=== PATIENT | female | born 1965 | race Caucasian/White ===

== ENCOUNTER 2018-07-02 12:48 | Outpatient (REF) | payer BC, SELFPAY ==
--- NOTE | 2018-07-02 11:40 | PAPFT_PTH ---
PATIENT: Kate North LOC: [facility] U#:[id number] AGE/SX: 52/F ROOM: RE07/02/[address]: ODIN Reyes : 1965 BED: DIS: 07/02/2018 SPEC #: [id number] RECD: 07/02/18 17:58 STATUS: DEEPA REQ #: [id number] RADHA: 07/02/18 11:[address]: Dejah Naranjo DEPT: [facility] Cytology RECD BY: Stacie Benítez Tissues: 1 - CX/ENDOCX FOR PAP SMEARS Procedures: PAP THIN PREP/UVM Screening HPV DNA PROBE Comments: [id number]
== END 2018-07-02 13:08 ==
LOC: LBN 12:48
PROVIDERS: PCP Nurse Practitioner Family; Visit Provider Nurse Practitioner Family
DX: Z12.4 Encounter for screening for malignant neoplasm of cervix (principal); Z11.51 Encounter for screening for human papillomavirus (HPV)
CPT/HCPCS: 88142; 87624

== ENCOUNTER 2018-08-19 00:39 | Outpatient (CLI) | payer BC, SELFPAY ==
--- NOTE | 2018-08-19 12:50 | DI.MAMMO_ITS ---
SYMPTOM/DIAGNOSIS: SCREENING, Z12.31 BILATERAL SCREENING MAMMOGRAM: Mammograms were interpreted according to the usual protocol including computer analysis with CAD system, tomosynthesis and C view imaging. The patient's previous exam performed in 2004 is no longer available for comparison. The breasts are composed of heterogeneously dense fibroglandular tissue, Breast density category C. There are no suspicious masses or suspicious microcalcifications seen. IMPRESSION: Category 1-C, negative mammogram. Yearly screening mammography is recommended. RUST ASSESSMENT OF FINDINGS: Negative. Category 1. Patient will receive a letter notifying them of these results. Bi-RADS category C. The breasts are heterogeneously dense, which may obscure small masses.
== END 2018-08-19 00:59 ==
PROVIDERS: PCP Nurse Practitioner Family; Visit Provider Nurse Practitioner Family
DX: Z12.31 Encounter for screening mammogram for malignant neoplasm of breast (principal)
CPT/HCPCS: 77063; 77067

== ENCOUNTER 2019-03-10 12:50 | Emergency (ER) | payer OTHER, SELFPAY ==
[2019-03-10 12:58] VITALS: BP 150/95; PULSE 79; RESP 16; TEMP 36.6; O2SAT 100
--- NOTE | 2019-03-10 13:12 | ED.GENADUL_ITS ---
Discharge Plan Disposition Patient Disposition: HOME Condition: Stable Discharge Details Chief Complaint: Allergic Clinical Impression: Pruritus Primary Care Provider: Dejah Naranjo ED Provider: Santino Krishna Home Meds and New Rx's Prescriptions: New prednisone 50 mg tablet 50 mg PO DAILY 5 Days Qty: 5 RF: 0 epinephrine 0.3 mg/0.3 mL auto-injector 0.3 mg IM ONCE PRN (Reason: anaphylaxis) Qty: 2 RF: 0 Discharge Instructions Additional Instructions: continue taking your antihistamines follow up as scheduled with your primary care provider if you develop difficulty breathing, abdominal pain or perstistent vomit use your epi pen and return to the emergency department for reevaluation Medical Decision Making 53 yo female states that since Friday morning her face has felt more swollen and itching. She ate shellfish on Friday and has no known allergy to this so unclear if this started her symptoms, denies new meds or detergents. She has no respiratory or gi symptoms and is speaking in full sentences. She has no hives, has mild erythema of her cheeks that is not tender or warm to touch and I can't appreciate any signfiicant swelling. Given her itching and reproted swelling could have local dermatitis, will start steroids as she is already taking antihistamines and advised f/u with pcp as scheduled tomorrow and return precautions given Differential Diagnosis local dermatitis, allergies HPI General Mode of arrival: ambulatory . Date/Time Provider Initiated Documentation: 03/10/19 13:05 . Limitations to Documentation: no limitations . Information obtained by: patient . History of Present Illness 53 year old F presents to the emergency department with the chief complaint of face swelling, described as moderate, and is localized to the face. Patient started experiencing this day(s) (5) and it has been constant. No relieving factors improve symptom(s), No exacerbating factors reported . Patient did receive the following treatments prior to arrival, none Related Data Home Medications Medication Instructions Recorded Confirmed epinephrine 0.3 mg IM ONCE PRN #2 each 03/10/19 prednisone 50 mg PO DAILY 5 Days #5 tab 03/10/19 Previous Rx's Medication Instructions Recorded epinephrine 0.3 mg IM ONCE PRN #2 each 03/10/19 prednisone 50 mg PO DAILY 5 Days #5 tab 03/10/19 Allergies Allergy/AdvReac Type Severity Reaction Status Date / Time shrimp Allergy Intermediate Lip Verified 03/10/19 13:02 Swelling Penicillins Allergy Mild Hives Verified 03/10/19 13:02 Shellfish Allergy Intermediate Lip Uncoded 03/10/19 13:02 Swelling General Stated Complaint: Allergic JULIANA: 3 Review of Systems Review of Systems All systems reviewed & are unremarkable except as noted in HPI and below Constitutional Denies chills, Denies fever(s) and Denies weakness Cardiovascular Denies chest pain and Denies dyspnea Respiratory Denies dyspnea Gastrointestinal Denies abdominal pain, Denies nausea and Denies vomiting Neurologic Denies weakness PFSH Medical History Generalized anxiety disorder (Chronic) Surgical History S/P LASIK surgery of both eyes (Inactive ~2007) Family History Mother Hypertension Thyroid dysfunction Father Multiple sclerosis Lead poisoning Alcohol abuse Sister Substance abuse Hepatitis C Maternal Grandfather Alcohol abuse COPD (chronic obstructive pulmonary disease) with emphysema Maternal Grandmother Stroke Depression Paternal Grandfather No problems noted. Paternal Grandmother No problems noted. Social History Smoking/Tobacco Use Status: Never Alcohol Intake: current Alcohol Intake frequency: 3 or more drinks per day Alcohol type: beer and wine Drug use: Never Substance use type: does not use Household members: other Details: 4 current occupation: [employer] Pets and animals: Yes Pets and animals: cat(s), horse(s) and other Details: SHEEP Duration: 45-60 minutes/day Frequency: daily Lona/Anglican: No preference Special lona needs: No Do you feel safe at home: Yes Do you feel safe in your relationship?: Yes Exam Const General: no acute distress Orientation: alert HENMT Head: normocephalic Ears: external ears normal General nose exam: external nose normal Mouth: moist mucous membranes Eyes General: appearance normal, both eyes and all related structures Neck Neck: normal visual inspection Resp Effort & Inspection: normal respiratory effort and able to speak in complete sentences Cardio Rate: regular rate Skin General skin exam: elasticity normal Neuro General: alert and oriented x3 Extrem General: normal to inspection Psych Mental Status: mental status grossly normal Course Vital Signs Temperature 36.6 C 03/10/19 12:58 Pulse 79 03/10/19 12:58 Respiratory Rate 16 03/10/19 12:58 Blood Pressure 150/95 H 03/10/19 12:58 Pulse Oximetry 100 03/10/19 12:58 Temperature 36.6 C 03/10/19 12:58 Temperature Source Temporal Artery Scan 03/10/19 12:58 Pulse 79 03/10/19 12:58 Respiratory Rate 16 03/10/19 12:58 Respiratory Effort Non-Labored 03/10/19 13:01 Respiratory Pattern Normal 03/10/19 13:01 Blood Pressure 150/95 H 03/10/19 12:58 Blood Pressure Position Sitting 03/10/19 12:58 Pulse Oximetry 100 03/10/19 12:58 Oxygen Delivery Method Room Air 03/10/19 12:58 Oxygen Flow Rate 0 03/10/19 12:58 Pain Level 0 03/10/19 12:58
[2019-03-10 15:28] VITALS: BP 150/95; PULSE 79; RESP 16; TEMP 36.6; O2SAT 100
== END 2019-03-10 13:32 | disposition home or self-care (01) ==
PROVIDERS: Emergency Provider Emergency Medicine; PCP Nurse Practitioner Family
DX: L29.9 Pruritus, unspecified (principal)
CPT/HCPCS: 99283

== ENCOUNTER 2019-03-16 08:40 | Outpatient (CLI) | payer OTHER, SELFPAY ==
[2019-03-16 11:10] LABS: Anion Gap 9.8 mmol/L (3-11); BUN 8 mg/dL (7-18); CO2 29.2 mmol/L (21.0-32.0); CREATININE 0.55 mg/dL (0.55-1.02); Calcium 9.5 mg/dL (8.5-10.1); Chloride 94 mmol/L (98-107); FREE T4 0.96 ng/dL (0.76-1.46); Glucose 84 mg/dL (70-100); Potassium 4.2 mmol/L (3.5-5.1); Sodium 133 mmol/L (136-145); TSH 2.43 uIU/mL (0.358-3.74)
[2019-03-16 11:28] LABS: Calculated LDL 127 mg/dL; Cholesterol 212 mg/dL (50-200); HDL Cholesterol 67 mg/dL (40-60); Triglyceride 90 mg/dL (30-150)
[2019-03-18 00:40] LABS: Clam IgE <0.35 kU/L; Crab IgE <0.35 kU/L; Lobster IgE <0.35 kU/L; Oyster IgE <0.35 kU/L; Scallop IgE <0.35 kU/L; Shrimp IgE <0.35 kU/L
== END 2019-03-16 09:00 ==
PROVIDERS: PCP Nurse Practitioner Family; Visit Provider Nurse Practitioner Family
DX: Z00.00 Encounter for general adult medical examination without abnormal findings (principal); T78.1XXA Other adverse food reactions, not elsewhere classified, initial encounter; Z01.82 Encounter for allergy testing
CPT/HCPCS: 36415; 80048; 80061; 83721; 84439; 84443; 86003

== ENCOUNTER 2019-04-23 10:15 | Outpatient (CLI) | payer OTHER, SELFPAY ==
[2019-04-23 13:34] LABS: ESR 4 mm/hr (0-30)
[2019-04-23 16:55] LABS: CRP, High Sensitivity 0.18 mg/L
[2019-04-26 11:59] LABS: IgA 282 mg/dL (85-499); Interpretation SEE COMMENTS; Tissue Transglutaminase IgA <1.2 U/mL (<4.0)
[2019-04-26 13:43] LABS: ANA Interpretation Negative (NEGAT)
== END 2019-04-23 10:35 ==
PROVIDERS: PCP Nurse Practitioner Family; Visit Provider Nurse Practitioner Family
DX: L53.9 Erythematous condition, unspecified (principal); K90.49 Malabsorption due to intolerance, not elsewhere classified
CPT/HCPCS: 36415; 82784; 83516; 85652; 86141; 86038

== ENCOUNTER 2019-09-06 11:48 | Outpatient (CLI) | payer OTHER, SELFPAY ==
[2019-09-06 12:56] LABS: Abs Immature Grans 0.01 k/cumm (0.0-0.09); Absolute Basophil Count 0.04 k/cumm (0.0-0.2); Absolute Eosinophil Count 0.11 k/cumm (0.0-0.7); Absolute Lymphocyte Count 1.65 k/cumm (1.2-3.4); Absolute Monocyte Count 0.75 k/cumm (0.11-0.7); Absolute Neutrophil Count 4.46 k/cumm (1.2-6.7); Basophils % 0.6; Eosinophils % 1.6; HGB 13.2 g/dL (12.0-15.5); Immature Grans % 0.1 %; Lymphocytes % 23.5; Mean Corp. HGB Concentration 33.8 g/dL (32.0-36.0); Mean Corpuscular Hemoglobin 31.6 pg (27.0-33.0); Mean Corpuscular Volume 93.3 fL (80-95); Mean Platelet Volume 10.7 fL (8.0-11.0); Monocytes % 10.7; Neutrophils % 63.5; Platelet Count 314 x1000/uL (130-400); RBC 4.18 m/cumm (4.00-5.20); RBC Distribution Width 11.6 % (11.7-14.6); White Blood Cell Count 7.02 k/cumm (4.4-10.8)
[2019-09-06 14:45] LABS: ALT 14 U/L (14-59); AST 15 U/L (15-37); Albumin 4.5 g/dL (3.4-5.0); Alkaline Phosphatase 72 U/L (46-116); Anion Gap 9.2 mmol/L (3-11); BUN 8 mg/dL (7-18); Bilirubin, Total 0.7 mg/dL (0.2-1.0); CO2 28.8 mmol/L (21.0-32.0); CREATININE 0.61 mg/dL (0.55-1.02); Calcium 9.7 mg/dL (8.5-10.1); Chloride 94 mmol/L (98-107); Glucose 111 mg/dL (74-106); Potassium 5.4 mmol/L (3.5-5.1); Sodium 132 mmol/L (136-145); Total Protein 7.7 g/dL (6.4-8.2)
== END 2019-09-06 12:08 ==
PROVIDERS: PCP Nurse Practitioner Family; Visit Provider Internal Medicine
DX: R50.9 Fever, unspecified (principal); H93.90 Unspecified disorder of ear, unspecified ear
CPT/HCPCS: 36415; 80053; 85025

== ENCOUNTER 2019-09-08 10:50 | Outpatient (CLI) | payer OTHER, SELFPAY ==
[2019-09-08 12:54] LABS: Anion Gap 6.9 mmol/L (3-11); CO2 30.1 mmol/L (21.0-32.0); Chloride 95 mmol/L (98-107); Potassium 5.1 mmol/L (3.5-5.1); Sodium 132 mmol/L (136-145)
== END 2019-09-08 11:10 ==
PROVIDERS: PCP Nurse Practitioner Family; Visit Provider Family Medicine
DX: E87.1 Hypo-osmolality and hyponatremia (principal)
CPT/HCPCS: 36415; 80051

== ENCOUNTER 2019-09-13 02:32 | Outpatient (RCR) | payer OTHER, SELFPAY ==
[2019-09-13] MEDS: Cosyntropin 0.25 MG VIAL IVP (07:15)
[2019-09-13] MEDS: Normal Saline Flush 10 ML SYR 20 ML IVP (07:19)
[2019-09-16 15:21] LABS: Cortisol (Baseline) 17 ug/dL (4-23)
== END 2019-10-01 23:59 | disposition home or self-care (01) ==
LOC: INF 02:32
PROVIDERS: PCP Nurse Practitioner Family; Visit Provider Family Medicine
DX: E27.40 Unspecified adrenocortical insufficiency (principal)
CPT/HCPCS: 36415; 80400; 82533; 87206; 96374; J0834

== ENCOUNTER 2019-11-02 03:49 | Outpatient (CLI) | payer OTHER, SELFPAY ==
[2019-11-03 12:43] LABS: Adrenocorticotropic Hormone, P 26 pg/mL
== END 2019-11-02 04:09 ==
PROVIDERS: PCP Nurse Practitioner Family; Visit Provider Internal Medicine Endocrinology, Diabetes & Metabolism
DX: E27.3 Drug-induced adrenocortical insufficiency (principal)
CPT/HCPCS: 36415; 82533; 82024

== ENCOUNTER 2019-12-29 18:45 | Observation (INO) | payer OTHER, SELFPAY ==
[2019-12-29 18:42] VITALS: BP 154/90; PULSE 92; RESP 20; TEMP 36.8; O2SAT 100
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
[2019-12-29 20:28] LABS: Abs Immature Grans 0.02 k/cumm (0.0-0.09); Absolute Basophil Count 0.02 k/cumm (0.0-0.2); Absolute Eosinophil Count 0.05 k/cumm (0.0-0.7); Absolute Lymphocyte Count 1.44 k/cumm (1.2-3.4); Absolute Monocyte Count 0.95 k/cumm (0.11-0.7); Absolute Neutrophil Count 6.76 k/cumm (1.2-6.7); Anion Gap 10.3 mmol/L (3-11); BUN 6 mg/dL (7-18); Basophils % 0.2; CO2 24.7 mmol/L (21.0-32.0); CREATININE 0.54 mg/dL (0.55-1.02); Calcium 9.1 mg/dL (8.5-10.1); Chloride 97 mmol/L (98-107); Eosinophils % 0.5; Glucose 105 mg/dL (74-106); HGB 11.7 g/dL (12.0-15.5); Immature Grans % 0.2 %; Lymphocytes % 15.6; Mean Corp. HGB Concentration 34.4 g/dL (32.0-36.0); Mean Corpuscular Volume 89.9 fL (80-95); Mean Platelet Volume 10.3 fL (8.0-11.0); Monocytes % 10.3; Neutrophils % 73.2; Platelet Count 285 x1000/uL (130-400); Potassium 3.5 mmol/L (3.5-5.1); RBC 3.78 m/cumm (4.00-5.20); RBC Distribution Width 11.8 % (11.7-14.6); Sodium 132 mmol/L (136-145); White Blood Cell Count 9.24 k/cumm (4.4-10.8)
[2019-12-29] MEDS: Normal Saline - Diluent 50 ML VIAL IV (20:38)
[2019-12-29] MEDS: Omnipaque 350 MG/ML 100 ML BTL IJ (20:38)
[2019-12-29] MEDS: Normal Saline Flush 10 ML SYR IVP ×2 (21:05→23:29)
--- NOTE | 2019-12-29 21:14 | NUR.NOTE ---
Knee immobilizer placed to left leg. +PP,+CSM.
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
[2019-12-29 21:40] VITALS: BP 161/89; PULSE 103; RESP 13; O2SAT 97
[2019-12-29] MEDS: Normal Saline 1,000 ML 100 ML IV (21:52)
[2019-12-29 22:12] VITALS: BP 162/95; PULSE 94; RESP 16; TEMP 37.3; O2SAT 97
[2019-12-29 22:28] VITALS: BP 144/93; PULSE 94; RESP 19; TEMP 37; O2SAT 98
[2019-12-29 22:32] VITALS: BP 144/93; PULSE 94; RESP 19; TEMP 37; O2SAT 98
[2019-12-29] MEDS: Acetaminophen 500 MG TAB 1000 MG PO (23:26)
[2019-12-29] MEDS: LORazepam 2 MG/ML VIAL 0.5 MG IVP (23:27)
[2019-12-29] MEDS: Ketorolac 15 MG/ML VIAL IVP (23:28)
[2019-12-30 03:44] VITALS: BP 134/78; PULSE 82; RESP 18; TEMP 36.7; O2SAT 97
[2019-12-30] MEDS: Normal Saline Flush 10 ML SYR IVP ×2 (03:50→09:15)
[2019-12-30] MEDS: Ketorolac 15 MG/ML VIAL IVP ×2 (03:50→09:09)
[2019-12-30] MEDS: Acetaminophen 500 MG TAB 1000 MG PO ×2 (05:40→14:28)
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
[2019-12-30 08:15] VITALS: BP 147/88; PULSE 88; RESP 18; TEMP 36.3; O2SAT 98
--- NOTE | 2019-12-30 08:50 | PT.INNT ---
Date of service: 12/30/19 Time of Service: 08:40 PT Notes Visit Reasons: LEFT PROXIMAL TIBIA FRACTURE Patient has not had breakfast yet and has not received her pain medication. She states that orthopedic surgeon advised her that she needs to be pre-medicated for pain before doing any mobility task. Will plan on coordinating with nurse for pre-medication and recheck patient in half an hour. Thank you very much for this referral. Antonella Barney PT, DPT, CLT [facility] Inpatient PT at [facility]
[2019-12-30] MEDS: Multivitamin TAB 1 TAB PO (09:06)
[2019-12-30] MEDS: Thiamine 100 MG TAB PO (09:07)
[2019-12-30] MEDS: Folic Acid 1 MG TAB PO (09:07)
[2019-12-30] MEDS: LORazepam 1 MG TAB PO/SL (09:20)
[2019-12-30] MEDS: Normal Saline 1,000 ML 100 ML IV (09:25)
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
--- NOTE | 2019-12-30 11:23 | W.PM.DS.N ---
DS: Diagnosis Discharge Diagnosis (1) Closed fracture of left tibial plateau: Status: Acute Asessment and Plan: Kate is a 54yo with a comminuted lateral tibial plateau fracture. There is significant displacement and will need operative fixation. This will have to occur once the swelling has diminished, plan for late next week. (2) Closed fracture fibula, head: Status: Acute Discharge Plan Disposition Patient Disposition: HOME Condition: Stable Discharge Details Chief Complaint: Trauma Clinical Impression: Left knee injury, Fracture of tibial plateau, Closed fracture fibula, head Reason For Visit: LEFT PROXIMAL TIBIA FRACTURE Admit Date/Time: 12/29/19 21:21 Admit Provider: Teja Casillas Attending Provider: Teja Casillas Primary Care Provider: Dejah Naranjo ED Provider: Giovanny Winslow Hospital Course Hospital Course: Kate was admitted for pain control. She tolerated the knee/leg in the knee immobilizer and had reasonable pain control with oral agents. She was able to mobilize with PT. Home Meds and New Rx's Prescriptions: New hydrocodone-acetaminophen 5-325 mg tablet 1 tab PO Q6H PRN PRN (Reason: pain) Qty: 4 RF: 0 acetaminophen 500 mg tablet 1,000 mg PO Q8H PRN (Reason: pain) Qty: 90 RF: 3 ibuprofen 600 mg tablet 600 mg PO TID PRNQty: 90 RF: 3 enoxaparin [Lovenox] 40 mg/0.4 mL syringe 40 mg SC DAILY Qty: 7 RF: 0 diazepam 5 mg tablet 5 mg PO TID PRNQty: 12 RF: 0 Narcan 4 mg/actuation spray,non-aerosol 1 spray FARNAZ Q2M Qty: 2 RF: 0 Continued ascorbic acid (vitamin C) [Vitamin C] 250 mg Tablet 2,000 mg PO DAILY RF: 0 cholecalciferol (vitamin D3) [Vitamin D3] 125 mcg (5,000 unit) Tablet 5,000 unit PO DAILY RF: 0 [facility] [place] 2 cap PO BID RF: 0 Transq 1 tab PO TID RF: 0 epinephrine 0.3 mg/0.3 mL auto-injector 0.3 mg IM ONCE PRN (Reason: anaphylaxis) Qty: 2 RF: 0 Discharge Instructions Additional Instructions: Activity: You are non weight bearing on the left leg. You should have the knee immobilizer on and snug for all mobilization. You may unstrap and loosen the knee brace while awake and laying in bed. You may apply ice directly to the leg/knee - alternating 20 minutes on and 20 minutes off. It is encouraged to move your ankle and toes as tolerated. Medications: - You should take Tylenol and Ibuprofen around the clock for the first days-weeks. You will take up to 1000mg of Tylenol every 8 hours and 600mg of Ibuprofen every 8 hours. - You should use the Diazepam (Valium) 5mg tablet up to every 8 hours as needed for anxiety and pain and muscle cramping. - Should you have pain beyond this, you may take a narcotic pain medication, Hyrdocodone. If you are having to use this, you should call Dr. Casillas or his office to discuss. - If you need a refill, please call the office at [phone]. Surgery Date: Friday, January 04. Expect a phone call late on Friday or Friday to check on the skin prior to proceeding on Friday. Surgery will tentatively be a day surgery or one night overnight if needed. If you have any urgent or semi-urgent concerns, you may reach Dr. Casillas at [phone] (cell) or [email or web address]. Referrals: Teja Casillas MD [ [facility] STAFF PHYSICIAN] - Activity:: Activity as Tolerated Equipment/Supplies:: Hospital Bed Diet:: As Tolerated Discharge Orders Discharge Orders: Discharge Order (Routine); Ordered 12/30/19 Ordered By: Teja Casillas DS: Summary Status at Discharge Functional status at discharge: uses cane/walker Overall status at discharge: patient is not back to baseline Mental Status: mental status grossly normal Speech and Movement: speech and movement normal Mood: congruent mood Affect: normal affect Exam Psych Mental Status: mental status grossly normal Speech and Movement: speech and movement normal Mood: congruent mood Affect: normal affect DS: Data Vitals/I&O Vitals and I&O: Vital Signs Temperature 36.3 C L 12/30/19 08:15 Temperature Source Temporal Artery Scan 12/30/19 08:15 Pulse 88 12/30/19 08:15 Pulse Rhythm Regular 12/30/19 03:34 Respiratory Rate 18 12/30/19 08:15 Respiratory Effort Non-Labored 12/30/19 03:34 Respiratory Depth Normal 12/30/19 03:34 Respiratory Pattern Normal 12/30/19 03:34 Blood Pressure 147/88 H 12/30/19 08:15 Blood Pressure Position Sitting 12/29/19 18:42 Pulse Oximetry 98 12/30/19 08:15 Oxygen Delivery Method Room Air 12/30/19 08:15 Oxygen Flow Rate 0 12/30/19 08:15 Pain Level 7 12/30/19 08:15 Intake & Output 12/29/19 12/29/19 12/30/19 11:59 23:59 11:59 Intake Total 1000 / 1000 Output Total 300 / 300 Balance 700 / 700 Weight 56.699 kg Intake: IV 1000 / 1000 Output: Urine 300 / 300 Other: Urine Color Pale Urine Appearance Clear Clear Urine Odor Normal Voiding Methods Bedside Commode Data Completed and Pending Labs on day of discharge: Labs from last 24 hours 12/29/19 12/29/19 12/29/19 22:05 19:55 19:55 WBC 9.24 RBC 3.78 L Hgb 11.7 L Hct 34.0 L MCV 89.9 MCH 31.0 MCHC 34.4 RDW 11.8 Plt Count 285 MPV 10.3 Immature Gran % 0.2 Neutrophils % 73.2 Lymphocytes % 15.6 Monocytes % 10.3 Eosinophils % 0.5 Basophils % 0.2 Absolute Neutrophils 6.76 H Absolute Lymphocytes 1.44 Absolute Monocytes 0.95 H Absolute Eosinophils 0.05 Absolute Basophils 0.02 Sodium 132 L Potassium 3.5 Chloride 97 L Carbon Dioxide 24.7 Anion Gap 10.3 BUN 6 L Creatinine 0.54 L Estimated GFR/1.73 m2 >= 60.00 Glucose 105 Calcium 9.1 COVID-19 PCR Pending Nasopharyn COVID-19 PCR Pending Ref Test Perform Site Pending [facility] Medical History Generalized anxiety disorder (Chronic) Hyperlipidemia (Chronic) Surgical History S/P LASIK surgery of both eyes (Inactive ~2007) Family History Mother Hypertension Thyroid dysfunction Father , in his 50s Multiple sclerosis Lead poisoning Alcohol abuse Sister Substance abuse Hepatitis C Maternal Grandfather , in his 80s Alcohol abuse COPD (chronic obstructive pulmonary disease) with emphysema Maternal Grandmother , in her 70s Stroke Depression Paternal Grandfather No problems noted. Paternal Grandmother , at 75 of MVA No problems noted. Social History Smoking/Tobacco Use Status: Never Alcohol Intake: current Alcohol Intake frequency: 3 or more drinks per day Alcohol type: wine Drug use: Occasionally Details: Takes edibles at night occasionally to help sleep. Caregiver/Support person: No Household members: spouse Housing: house current occupation: [employer] Pets and animals: Yes Pets and animals: cat(s), horse(s) and other Details: SHEEP Sexually active: Yes Do you think of yourself as: straight/heterosexual Current gender identity: female What is your relationship status?: How often do you talk on the phone with friends or family?: three or more times per week How often do you get together with friends or relatives?: three or more times per week How often do you attend hoahaoism or zoroastrian services?: decline to answer Do you belong to any clubs or organized social groups?: no Panel score (0-1 are the most socially isolated patients): 2 What type of physical activity do you participate in: walking, other and yoga Duration: > 90 minutes/day Frequency: daily Lona/Congregation: None Special lona needs: No Seatbelt use: always Helmet use: Yes Helmet use: sometimes Drive intox or ride w/intox catering truck driver: No Do you feel safe at home: Yes Do you feel safe in your relationship?: Yes Female Reproductive History Menstrual Menopause type: natural Date of menopause: 08/31/12 History History 0 Para Hx # Term Pregnancies Multiple births Hx # Pregnancies Ectopic pregnancies AB induced Hx Number of Living Children AB spontaneous
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
[2019-12-30] MEDS: Enoxaparin 40 MG/0.4 ML SYR SC (14:28)
[2019-12-30 14:35] VITALS: BP 132/78; PULSE 80; RESP 18; TEMP 36.6; O2SAT 98
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
--- NOTE | 2019-12-30 19:28 | PDOC.CMDIS ---
- If Service Date Differs Date of service: 12/30/19 Time of Service: 19:28 LACE Index Scoring Tool - Questions: Length of Stay (in days): 2 Acuity (Admit via E.D.?): Yes E.D. Visits: 2 - Answers: Total Score: 7 Risk of Readmission: Low Risk Care Management Discharge Reason for Hospitalization: Left Proximal Tibia Fracture Discharge Plan: Kate will return home with no additional services at this time. She will follow up with Ortho next week for surgery. CM coordinated delivery of a hospital bed through [employer]. She will be driven home by her via private vehicle. She is happy to be returning home. Patient/Family Education Needs: Review discharge instructions regarding activity levels and medications, discussion of self care needs including ask me three. Services Needed at Discharge: DME Agency ([employer])
[2019-12-30 22:25] LABS: COVID-19 RT-PCR UVMMC Result Negative (Negative)
== END 2019-12-30 15:43 | disposition home or self-care (01) ==
LOC: ER 21:45 → MS 22:23
PROVIDERS: Student in an Organized Health Care Education/Training Program; Admitting Provider Student in an Organized Health Care Education/Training Program; Emergency Provider Emergency Medicine; PCP Nurse Practitioner Family; Visit Provider Student in an Organized Health Care Education/Training Program
DX: S82.142A Displaced bicondylar fracture of left tibia, initial encounter for closed fracture (principal); S82.832A Other fracture of upper and lower end of left fibula, initial encounter for closed fracture; V86.95XA Unspecified occupant of 3- or 4- wheeled all-terrain vehicle (ATV) injured in nontraffic accident, initial encounter
CPT/HCPCS: 36415; 73562; 73706; 80048; 96374; 96376; 97162; 97530; 99223; 99238; 99285; J1650; U0003; 73590; 85025; 99284; G0378; J1885; J2060; J3490; L1830

== ENCOUNTER 2020-01-05 06:20 | Inpatient (IN) | payer OTHER, SELFPAY ==
[2020-01-05] VITALS (14 sets, daily range): BP systolic 101–145; BP diastolic 61–96; PULSE 69–92; RESP 10–18; TEMP 36.3–37.1; O2SAT 97–100
[2020-01-05] MEDS: Celecoxib 200 MG CAP 400 MG PO (06:41)
[2020-01-05] MEDS: Gabapentin 300 MG CAP PO (06:41)
[2020-01-05] MEDS: Lactated Ringers 1,000 ML 80 ML IV ×2 (07:32→10:21)
[2020-01-05] MEDS: ceFAZolin 2 GM/50 ML BAG IVPB (07:44)
[2020-01-05] MEDS: Ketorolac 30 MG/ML VIAL (09:28)
[2020-01-05] MEDS: Normal Saline 20 ML VIAL (09:28)
[2020-01-05] MEDS: Bupivacaine 0.25% Pres-Free 30 ML VIAL ×2 (09:29→15:25)
--- NOTE | 2020-01-05 10:18 | DI.RAD_ITS ---
EXAM: XR KNEE LT 1V C-arm fluoroscopy CLINICAL HISTORY: TIBIAL PLATEAU FRACTURE. TECHNIQUE: 2D and realtime digital imaging was performed. COMPARISON: XR KNEE LT 3V AP,LAT,LATESHA from 12/29/2019 FINDINGS: Fluoroscopy was provided in the OR. Hard copy images show placement of a fixation plate along the l ateral aspect of the proximal tibia for fixation of the previously noted tibial plateau fracture. Th e alignment appears satisfactory. Please see procedure note for details. FLUORO TIME: 173.5 seconds RADIATION DOSE DELIVERED:
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
[2020-01-05] MEDS: oxyCODONE 5 MG TAB PO ×3 (12:33→22:14)
[2020-01-05] MEDS: ceFAZolin 1 GM/50 ML BAG IVPB ×2 (13:58→22:28)
[2020-01-05] MEDS: Acetaminophen 500 MG TAB 1000 MG PO ×2 (13:59→21:06)
[2020-01-05] MEDS: Dexamethasone 4 MG/ML VIAL (15:25)
[2020-01-05] MEDS: Bupivacaine 0.25% Pres-Free 10 ML VIAL (15:25)
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
[2020-01-05] MEDS: Ketorolac 15 MG/ML VIAL IVP ×2 (16:05→21:06)
[2020-01-05] MEDS: Enoxaparin 40 MG/0.4 ML SYR SC (19:57)
[2020-01-05] MEDS: Normal Saline Flush 10 ML SYR (19:58)
[2020-01-05] MEDS: Normal Saline Flush 10 ML SYR IVP (22:29)
[2020-01-05] MEDS: HYDROmorphone 2 MG/ML VIAL 0.5 MG IVP (23:43)
[2020-01-06] VITALS (7 sets, daily range): BP systolic 123–153; BP diastolic 70–93; PULSE 90–109; RESP 16–19; TEMP 36.8–37.5; O2SAT 96–100
[2020-01-06] MEDS: HYDROmorphone 2 MG/ML VIAL 0.5 MG IVP ×4 (02:30→11:56)
[2020-01-06] MEDS: Normal Saline Flush 10 ML SYR IVP ×7 (02:31→14:24)
[2020-01-06] MEDS: Ketorolac 15 MG/ML VIAL IVP ×2 (04:01→09:38)
[2020-01-06] MEDS: Acetaminophen 500 MG TAB 1000 MG PO ×2 (05:43→14:57)
[2020-01-06] MEDS: ceFAZolin 1 GM/50 ML BAG IVPB (05:44)
--- NOTE | 2020-01-06 06:33 | W.PM.DS.N ---
Date of service: 01/08/20 Time of Service: 09:44 DS: Diagnosis Discharge Diagnosis (1) Closed fracture of left tibial plateau: Status: Acute Discharge Plan Disposition Patient Disposition: HOME Condition: Good Discharge Details Reason For Visit: LEFT TIBIAL PLATEAU FRACTURE Admit Date/Time: 01/06/20 12:47 Admit Provider: Teja Casillas Attending Provider: Teja Casillas Primary Care Provider: Dejah Naranjo [facility] Course Hospital Course: Patient was admitted to the medical/surgical floor following the procedure. Initial pain control was satisfactory. However, on postop day #1 she began having increasing pain. This required the use of multiple intravenous medications and anesthesia consult for regional nerve block. She was thus transition to an inpatient admission stay given the pain control difficulties requiring more intense and acute care. The levy catheter was removed and voiding spontaneously. She was able to mobilize to bedside commode and work with physical therapy although this was limited in the first few postoperative days. By postop day #3, her pain was improved after receiving a nerve block. Vitals were stable. Physical therapy worked with the patient and was cleared for discharge home. No acute medical issues. Home Meds and New Rx's Prescriptions: New aspirin 81 mg Tablet,Delayed Release (Dr/Ec) 81 mg PO BID Qty: 60 RF: 0 pantoprazole 40 mg Tablet,Delayed Release (Dr/Ec) 40 mg PO DAILY@0730 Qty: 30 RF: 0 docusate sodium [Colace] 100 mg Capsule 100 mg PO BID PRN PRN (Reason: Constipation) Qty: 0 RF: 0 hydromorphone 4 mg tablet 4 mg PO Q4H PRNQty: 15 RF: 0 Continued ascorbic acid (vitamin C) [Vitamin C] 250 mg Tablet 2,000 mg PO DAILY RF: 0 cholecalciferol (vitamin D3) [Vitamin D3] 125 mcg (5,000 unit) Tablet 5,000 unit PO DAILY RF: 0 [facility] [place] 2 cap PO BID RF: 0 Transq 1 tab PO TID RF: 0 acetaminophen 500 mg tablet 1,000 mg PO Q8H PRN (Reason: pain) Qty: 90 RF: 3 ibuprofen 600 mg tablet 600 mg PO TID PRNQty: 90 RF: 3 diazepam 5 mg tablet 5 mg PO TID PRNQty: 12 RF: 0 Narcan 4 mg/actuation spray,non-aerosol 1 spray FARNAZ Q2M Qty: 2 RF: 0 epinephrine 0.3 mg/0.3 mL auto-injector 0.3 mg IM ONCE PRN (Reason: anaphylaxis) Qty: 2 RF: 0 Discontinued hydrocodone-acetaminophen 5-325 mg tablet 1 tab PO Q6H PRN PRN (Reason: pain) Qty: 4 RF: 0 enoxaparin [Lovenox] 40 mg/0.4 mL syringe 40 mg SC DAILY Qty: 7 RF: 0 Discharge Instructions Additional Instructions: Activity: You are non weight bearing on the left leg. You may rest the weight of the leg on the ground when standing. You should have the knee immobilizer on and snug for all mobilization. You may unstrap and loosen the knee brace or remove it while awake and laying in bed. You may apply ice directly to the leg/knee - alternating 20 minutes on and 20 minutes off. Massage and heat may be helpful to the muscles and tissues not directly around the incision. It is encouraged to move your ankle and toes as tolerated. Medications: - You should take Tylenol and Ibuprofen around the clock for the first days-weeks. You will take up to 1000mg of Tylenol every 8 hours and 600mg of Ibuprofen every 8 hours. - You may take a narcotic pain medication, Hyrdomorphone, for breakthrough pain. You may halve this medication if you do not need a full dose. It is important to stay on top of your pain. If you have any acute issues with pain management, you should contact Dr. Casillas directly. - If you need a refill, please call the office at [phone]. Dressings: You have a Mepilex dressing over the wound. This is made to stay in place for at least one week. The sutures are buried in the skin and will not need to be removed. You may take a shower but it is encouraged to not get the dressing soaked. You may use a cling wrap (Saran wrap) to keep the dressing from being soaked. If it does get wet, you may remove this and replace with some light gauze. It is fine to leave in place until your follow-up appointment. Follow-up: Friday, January 18. You will be called on Keith with an appointment time. Referrals: Teja Casillas MD [ [facility] STAFF PHYSICIAN] - Equipment/Supplies: Non-Weight Bearing Crutches Activity:: Elevate Activity:: Nonweight bearing on left leg. Equipment/Supplies:: No Equipment Needed Diet:: As Tolerated Discharge Orders Discharge Orders: Discharge Order (Routine); Ordered 01/08/20 Ordered By: Teja Casillas DS: Summary Status at Discharge Functional status at discharge: uses cane/walker Overall status at discharge: patient is not back to baseline Mental Status: mental status grossly normal Speech and Movement: speech and movement normal Mood: congruent mood Affect: normal affect Exam Narrative Exam Narrative: Resting comfortably in the hospital bed. The left leg dressing shows minimal sanguinous discharge. The thigh and leg is compressible. There is skin wrinkling. All 4 compartments of the leg are soft. She has active dorsiflexion, plantarflexion, eversion, inversion of the foot and ankle. Sensation intact light touch over the deep and superficial peroneal nerve and tibial nerve. Palpable DP and PT pulse. Psych Mental Status: mental status grossly normal Speech and Movement: speech and movement normal Mood: congruent mood Affect: normal affect DS: Data Vitals/I&O Vitals and I&O: Vital Signs Temp Pulse Resp BP Pulse Ox 01/08/20 07:44 37.0 C 79 18 126/85 100 01/08/20 03:40 36.6 C 78 16 132/81 98 01/07/20 23:20 36 C L 73 16 131/85 98 [facility] Medical History Generalized anxiety disorder (Chronic) Hyperlipidemia (Chronic) Surgical History S/P LASIK surgery of both eyes (Inactive ~2007) S/P ORIF (open reduction internal fixation) fracture (Acute 01/05/20) ORIF of Left Tibial Plateau Fracture Family History Mother Hypertension Thyroid dysfunction Father , in his 50s Multiple sclerosis Lead poisoning Alcohol abuse Sister Substance abuse Hepatitis C Maternal Grandfather , in his 80s Alcohol abuse COPD (chronic obstructive pulmonary disease) with emphysema Maternal Grandmother , in her 70s Stroke Depression Paternal Grandfather No problems noted. Paternal Grandmother , at 75 of MVA No problems noted. Social History Smoking/Tobacco Use Status: Never Alcohol Intake: current Alcohol Intake frequency: 3 or more drinks per day Alcohol type: wine Drug use: Occasionally Details: Takes edibles at night occasionally to help sleep. Caregiver/Support person: No Household members: spouse Housing: house current occupation: [employer] Pets and animals: Yes Pets and animals: cat(s), horse(s) and other Details: SHEEP Sexually active: Yes Do you think of yourself as: straight/heterosexual Current gender identity: female What is your relationship status?: How often do you talk on the phone with friends or family?: three or more times per week How often do you get together with friends or relatives?: three or more times per week How often do you attend rastafarian or moravian services?: decline to answer Do you belong to any clubs or organized social groups?: no Panel score (0-1 are the most socially isolated patients): 2 What type of physical activity do you participate in: walking, other and yoga Duration: > 90 minutes/day Frequency: daily Lona/Restorationism: None Special lona needs: No Seatbelt use: always Helmet use: Yes Helmet use: sometimes Drive intox or ride w/intox fork truck driver: No Do you feel safe at home: Yes Do you feel safe in your relationship?: Yes Female Reproductive History Menstrual Menopause type: natural Date of menopause: 08/31/12 History History 0 Para Hx # Term Pregnancies Multiple births Hx # Pregnancies Ectopic pregnancies AB induced Hx Number of Living Children AB spontaneous
[2020-01-06] MEDS: Pantoprazole 40 MG TABCR PO (07:20)
[2020-01-06] MEDS: oxyCODONE 5 MG TAB PO (07:20)
[2020-01-06] MEDS: Cholecalciferol (Vitamin D3) 1,000 UNIT TAB 5000 UNITS PO (08:25)
[2020-01-06] MEDS: Ascorbic Acid 500 MG TAB 2000 MG PO (08:25)
[2020-01-06] MEDS: HYDROmorphone 2 MG TAB PO ×4 (08:26→11:08)
[2020-01-06] MEDS: Aspirin E.C. 81 MG TABEC PO ×2 (08:26→20:08)
[2020-01-06] MEDS: diazePAM 5 MG TAB PO ×3 (08:57→19:09)
--- NOTE | 2020-01-06 09:09 | NUR.NOTE ---
Nursing Note: 0830: pt had requested pain medication. MD had ordered oral dilaudid which was given at 0826 2mg. pt vomited dose into garbage can at approximately 0830. pt declines zofran. pt reports she is just upset and worked up. pt had been given her home medications which she reports has made her ill. pt has concerns over breakfast option; pt requests rye toast which is ordered and delivered to pt. pt upset that her pain is not under control; IVP dilaudid administered 0.5 mg. pt also requesting valium at this time which is given by RN. pt does not appear uncomfortable, relaxed facial expression, no grimacing or furrowed brow. RN will continue to monitor.
[2020-01-06] MEDS: HYDROmorphone 4 MG TAB PO (13:10)
--- NOTE | 2020-01-06 14:15 | INITIAL_ITS ---
- If Service Date Differs Date of service: 01/06/20 Time of Service: 14:15 Care Management Initial Assess REASON FOR HOSPITALIZATION:: left tibial plateau fracture PAST MEDICAL HISTORY/PAST SURGICAL HISTORY:: generalized anxiety disorder. adrenal condition per patient. hyperlipidemia PREVIOUS FUNCTIONAL STATUS/SOCIAL/FAMILY SUPPORTS:: Kate lives with her Mikie in [place] on [address]. They have a lot of property and have horses and 2 sheep. 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 She is independent at baseline and is very active. CURRENT FUNCTIONAL STATUS:: Kate was lying in bed when CM met with her. She stated that she was very uncofortable and had been in pain most of the night. This morning she began taking dilaudid orally and felt that she finally getting some relief.Kate described her injury which occurred a week ago and how she had managed the pain at home. Originally she was to be discharged today but has asked to stay one more night. ADVANCE DIRECTIVES:: Has forms at home but has not completed them Has patient been provided with information about the portal?: Yes Did the patient sign up for the portal?: No CODE STATUS:: Full Code INSURANCE COVERAGE / FINANCIAL ISSUES:: [facility] CURRENT HOME/COMMUNITY SERVICES/EQUIPMENT:: Kate has a hospital bed, commode and a walker. PRIMARY CARE PHYSICIAN:: Dejah Naranjo POTENTIAL DISCHARGE NEEDS:: Follow up with surgeon and discharge plan of care PATIENT/FAMILY EDUCATION NEEDS:: Discharge plan, limitations, follow up plan, Ask me Three TRANSPORTATION:: via private vehicle with PLAN:: Kate will likely be discharged home with no new services, although she may need PT at some point. She will follow up with her surgeon and discharge plan of care and transport via private vehicle with . CM to continue to support patient, family and discharge planning needs.
[2020-01-06] MEDS: Ondansetron 4 MG/2 ML VIAL IVP (14:23)
--- NOTE | 2020-01-06 15:56 | PT.INTREAT ---
Date of service: 01/06/20 Time of Service: 11:20 PT Notes Visit Reasons: LEFT TIBIAL PLATEAU FRACTURE Inpatient Physical Therapy Treatment Note [facility] Date: 01/06/2020 PRECAUTIONS: Fall. Standard. NWB on L LE. Knee immobilizer on at all times when out of bed. SUBJECTIVE: Kate voices how unhappy she is with her pain management today. She verbalizes that she did well yesterday but then the current adjustment with her pain pills has not really provided much pain relief for her so far. She initially refused walking activity early in the morning but was agreeable to a second visit in the morning to see if she feels a lot better to move. OBJECTIVE: Knee immobilizer on left. Mepilex Ag over surgical incision. TEDS on right leg. PAIN: She verbalized 7-8/10 at rest and with movement. BED MOBILITY/TRANSFERS Rolling L/R: Standby assist using BUE for support Supine-sit: Standby assist using both BUE to support left LE Sit-supine: Standby assist using both BUE to support left LE Sit-stand: Standby assist using BUE for support with front wheeled walker, compliant with WB precautions Stand-sit:Standby assist using BUE for support with front wheeled walker, compliant with WB precautions Bed-Chair: Standby assist using BUE for support with front wheeled walker, compliant with WB precautions Chair-bed: Standby assist using BUE for support with front wheeled walker, compliant with WB precautions GAIT Assistive Device: Front wheeled walker Weight bearing: Non weight bearing on left LE. Immobilizer on left knee. Assist: Standby assist Distance: 60 feet Deviation: Non weight bearing on left LE. Compliant with WB precautions. VITALS: 7?8/10 on left LE THERA EX: Refused. ASSESSMENT: During the second session in the morning, patient demonstrated good technique of performing non weight bearing on the left LE using front wheeled walker requiring only standby assist of this PT. Per nurse Velazquez, patient has not been able to tolerate transition to p.o. pain meds which has resulted to ineffective pain control. Orthopedic surgeon was made aware. Patient's anxiety level is significantly heightened at this time which has compounded and has limited her ability to participate in therapy. Dr. Casillas requested that Kate be held off from PT for the afternoon session and indicated a plan to have nerve/plexus block to manage pain sometime this afternoon. PLAN: Patient will benefit from home health PT services in order to progress mobility level using least restrictive assistive ambulatory device, assess home safety, identify additional equipment needs, and establish a functional maintenance program that will increase ability of patient to remain at home. TREATMENT CODE/TIME: 43926 x 39 minutes beginning at 9:35 AM and at 11:20 AM.
--- NOTE | 2020-01-06 21:42 | W.PM.PROGNOT ---
Date of Service Date of service: 01/06/20 Time of Service: 14:31 Assessment and Plan Assessment and plan (1) Closed fracture of left tibial plateau: Status: Acute Assessment and plan: Evonne is a 54-year-old status post ORIF of a left tibial plateau fracture. Unfortunately, she is having increasing amounts of pain. Given the complexity of her pain management she has been switched to an inpatient admission. At this point, given her increasing need for narcotic requirements but no signs of compartment syndrome no signs of complication from the surgery itself, I recommended an anesthetic block. I consulted the anesthesia team for regional anesthesia, likely popliteal block for the left leg. This was performed and resulted in complete pain relief. She will continue to be toe-touch weightbearing the left leg. We will continue to monitor her pain overnight and see how she does tomorrow with mobilization. Qualifiers: Encounter type: initial encounter Qualified Code(s): S82.142A - Displaced bicondylar fracture of left tibia, initial encounter for closed fracture (2) Inadequate pain control: Status: Acute Subjective Subjective Interval history since last seen: Evonne continues to have significant pain. She has had to go up on her scale of pain medication but continues report discomfort. Given the complexities of her pain control management I have switched her over to an inpatient admission. She denies numbness or tingling. She has been able to move her self in the bed and also use the bedside commode. Exam Narrative Exam Narrative: Evonne is resting in the hospital bed. She appears uncomfortable. The dressing of the left knee is removed and the wound is inspected which shows no signs of concern. All compartments of the leg are compressible. She is able demonstrate active ankle dorsiflexion, plantarflexion, inversion and eversion. All active motions are intact although weak to dorsiflexion. No pain with passive stretch. Sensation intact light touch of the deep and superficial peroneal nerve and tibial nerve. Palpable DP and PT pulse. The anterior compartment is swollen but easily compressible and the skin shows no signs of stretch. There is no drainage from the wound. A new Mepilex dressing was applied and ice was applied to the leg. Objective Objective Clinical Data: Vital Signs Temperature 36.8 C 01/07/20 03:34 Temperature Source Tympanic 01/07/20 03:34 Pulse 83 01/07/20 03:34 Pulse Rhythm Regular 01/07/20 01:10 Respiratory Rate 20 01/07/20 03:34 Respiratory Effort 01/07/20 01:10 Respiratory Depth Normal 01/07/20 01:10 Respiratory Pattern Bradypnea 01/07/20 01:10 Blood Pressure 112/78 01/07/20 03:34 Pulse Oximetry 98 01/07/20 03:34 Respiratory End-tidal CO2 34 01/05/20 11:20 Oxygen Delivery Method Room Air 01/07/20 03:34 Oxygen Flow Rate 0 01/07/20 03:34 Pain Level 0 01/07/20 05:09 Intake & Output 01/06/20 01/06/20 01/07/20 11:59 23:59 11:59 Intake Total 640 / 680 40 / 680 Output Total 650 / 1050 400 / 1050 Balance -10 / -370 -360 / -370 Intake: IV 140 / 180 40 / 180 Oral 500 / 500 Output: Urine 650 / 1050 400 / 1050 Other: Urine Color Yellow Yellow Yellow Urine Appearance Clear Clear Clear Urine Odor Normal Normal Voiding Methods Bedside Commode Bedside Commode Bedside Commode Laboratory Results WBC Cancelled 01/05/20 13:09 RBC Cancelled 01/05/20 13:09 Hgb Cancelled 01/05/20 13:09 Hct Cancelled 01/05/20 13:09 MCV Cancelled 01/05/20 13:09 MCH Cancelled 01/05/20 13:09 MCHC Cancelled 01/05/20 13:09 RDW Cancelled 01/05/20 13:09 Plt Count Cancelled 01/05/20 13:09 MPV Cancelled 01/05/20 13:09
--- NOTE | 2020-01-06 22:53 | NUR.NOTE ---
Nursing Note: Pt received nerve block and happy with it after, verbalized of no pain but when she went to used bedside commode, pt reported of having no sensation on her left leg and became anxious and with statement of being afraid to lost her leg & became restless on bed,keeps on turning, trying to get good position. Complained that the bed is not comfortable for her, so staff changed the bed. Reported also by SHAKE PACKER that pt was verbally rude, the justowriter operator tried to investigate and she stated that since changed of shift no one attended her, she wants to be checked constantly. The justowriter operator explained that she can utilize call lights system since she is on continuos O2 Sat monitoring, it will alert staff for any changes and which she understands it well. Diazepam po given as requested. Tylenol and ketoralac as scheduled not given, no pain until this time. Instructed not to put herself to bedside commode for safety, which she attempted it twice. Call lights within reach.
[2020-01-07] VITALS (8 sets, daily range): BP systolic 112–131; BP diastolic 77–89; PULSE 73–124; RESP 14–20; TEMP 36–37.2; O2SAT 98–100
[2020-01-07] MEDS: Ketorolac 15 MG/ML VIAL IVP ×4 (05:08→21:24)
[2020-01-07] MEDS: Normal Saline Flush 10 ML SYR IVP ×3 (05:09→21:25)
[2020-01-07] MEDS: Acetaminophen 500 MG TAB 1000 MG PO ×3 (05:09→21:25)
[2020-01-07] MEDS: Pantoprazole 40 MG TABCR PO (07:50)
[2020-01-07] MEDS: Cholecalciferol (Vitamin D3) 1,000 UNIT TAB 5000 UNITS PO (07:50)
[2020-01-07] MEDS: Ascorbic Acid 500 MG TAB 2000 MG PO (07:51)
[2020-01-07] MEDS: Aspirin E.C. 81 MG TABEC PO ×2 (07:51→19:43)
--- NOTE | 2020-01-07 13:09 | W.NUTRFU ---
Date of service: 01/07/20 Time of Service: 13:09 Nutritional Follow up NOTE: Pt admitted with fracture of tibia/fibia, s/p surgical procedure. Estimated Needs: 1600 kcal, 60 g protein, 1600 ml fluid. Must complete > 75% of meals to meet nutrient needs for healing/weight maintenance. Remains in house due to increase in pain. Following regular diet with moderately poor intake (25-50%) Meal preferences provided, preschool teacher aide working closely with Kate to optimize nutrient intake. Will continue to monitor and make recommendations as warranted. At risk for nutritional decline. Time Spent in Nutritional Counseling and Treatment: 5 min spent face to face
--- NOTE | 2020-01-07 14:57 | PGE_ITS ---
Date of Service Date of service: 01/07/20 Time of Service: 14:59 Assessment and Plan Assessment and plan (1) Closed fracture of left tibial plateau: Status: Acute Assessment and plan: Kate is a 54-year-old status post ORIF of the left tibial plateau. Unfortunately, she had significant pain. This pain control issues have required an admission to the hospital for better management. She is requiring IV narcotics but her pain has significantly improved with the addition of a peripheral nerve block. We will continue to follow her pain tonight. Likely, discharge home tomorrow assuming that her pain stays well controlled. I had a long discussion with nursing for managing pain as she comes out of the block. She has a range of 2 to 6 mg of hydromorphone to be used every 3 hours as needed. It is also okay to start with 2 mg and add on if she needs for a total of 6 mg within a 3-hour stretch. It is imperative that we stay on top of her pain. She also has notable anxiety and the use of Valium may be helpful as well. We will continue with aspirin for DVT prophylaxis. She may mobilize, nonweightbearing, on the left leg using a knee immobilizer and walker. Qualifiers: Encounter type: initial encounter Qualified Code(s): S82.142A - D isplaced bicondylar fracture of left tibia, initial encounter for closed fracture Subjective Subjective Interval history since last seen: Kate reports to be doing well today. She has had no significant pain. She has required a few doses of IV Dilaudid. She does have numbness from the block. She has been able to move on her own and use the bedside commode. She denies chest pain or shortness of breath. Exam Narrative Exam Narrative: Evaluation of the left leg shows some mild swelling. The skin has wrinkles. The compartments are compressible. She has significant decrease sensation from the knee down in the distribution of the common peroneal and tibial nerve. The anterior compartment is compressible. No notable drainage. Mild ecchymosis. Objective Objective Clinical Data: Vital Signs Temperature 37.2 C 01/07/20 12:07 Temperature Source Tympanic 01/07/20 12:07 Pulse 92 H 01/07/20 12:07 Pulse Rhythm Regular 01/07/20 07:45 Respiratory Rate 16 01/07/20 12:07 Respiratory Effort 01/07/20 07:45 Respiratory Depth Normal 01/07/20 07:45 Respiratory Pattern Bradypnea 01/07/20 07:45 Blood Pressure 127/81 01/07/20 12:07 Pulse Oximetry 100 01/07/20 12:07 Respiratory End-tidal CO2 34 01/05/20 11:20 Oxygen Delivery Method Room Air 01/07/20 12:07 Oxygen Flow Rate 0 01/07/20 12:07 Pain Level 3 01/07/20 12:07 Intake & Output 01/06/20 01/07/20 01/07/20 23:59 11:59 23:59 Intake Total 40 / 680 300 / 300 Output Total 400 / 1050 Balance -360 / -370 300 / 300 Intake: IV 40 / 180 Oral 300 / 300 Output: Urine 400 / 1050 Other: Urine Color Yellow Yellow Urine Appearance Clear Clear Urine Odor Normal Voiding Methods Bedside Commode Bedside Commode Laboratory Results WBC Cancelled 01/05/20 13:09 RBC Cancelled 01/05/20 13:09 Hgb Cancelled 01/05/20 13:09 Hct Cancelled 01/05/20 13:09 MCV Cancelled 01/05/20 13:09 MCH Cancelled 01/05/20 13:09 MCHC Cancelled 01/05/20 13:09 RDW Cancelled 01/05/20 13:09 Plt Count Cancelled 01/05/20 13:09 MPV Cancelled 01/05/20 13:09
--- NOTE | 2020-01-07 17:56 | PDOC.CMPRO ---
- If Service Date Differs Date of service: 01/07/20 Time of Service: 17:56 Care Management Progress Note S/O: Kate was sitting up in her chair when CM met with her. She reported that she was feeling good currently, as she had a block in her leg yesterday, so she was not feeling any pain. She expressed concern with the prospect of returning home today, as she does not know how she will handle breakthrough pain. CM assured her that she was not being discharged today, and that when she does return home, she will be provided all of the resources she will need to be successful at home. CM coordinated a hospital bed rental at Kate's prior admission, and she reported that she also has a bedside commode to help at night. CM will continue to follow. A: Kate is a 54 year old female admitted to [facility] on 01/06/20 with a closed fracture of left tibial plateau. P: Anticipate Kate will return home with no additional services when medically cleared. Education and resources will be made available upon discharge for pain management at home. She will follow up with Ortho, as recommended. Her will drive her home when ready via private vehicle. CM will continue to support pt with discharge planning considerations.
[2020-01-07] MEDS: diazePAM 5 MG TAB PO (21:25)
[2020-01-07] MEDS: HYDROmorphone 4 MG TAB PO (22:26)
[2020-01-08] MEDS: HYDROmorphone 4 MG TAB PO ×4 (00:38→13:00)
[2020-01-08] MEDS: Normal Saline Flush 10 ML SYR IVP ×3 (03:20→13:19)
[2020-01-08] MEDS: Ketorolac 15 MG/ML VIAL IVP ×2 (03:20→10:01)
[2020-01-08 03:40] VITALS: BP 132/81; PULSE 78; RESP 16; TEMP 36.6; O2SAT 98
[2020-01-08] MEDS: Acetaminophen 500 MG TAB 1000 MG PO (05:41)
[2020-01-08 07:44] VITALS: BP 126/85; PULSE 79; RESP 18; TEMP 37; O2SAT 100
[2020-01-08] MEDS: Cholecalciferol (Vitamin D3) 1,000 UNIT TAB 5000 UNITS PO (07:49)
[2020-01-08] MEDS: Ascorbic Acid 500 MG TAB 2000 MG PO (07:49)
[2020-01-08] MEDS: Aspirin E.C. 81 MG TABEC PO (07:50)
[2020-01-08] MEDS: Pantoprazole 40 MG TABCR PO (07:50)
--- NOTE | 2020-01-08 11:29 | PDOC.CMDIS ---
- If Service Date Differs Date of service: 01/08/20 Time of Service: 11:29 LACE Index Scoring Tool - Questions: Length of Stay (in days): 3 Acuity (Admit via E.D.?): No E.D. Visits: 2 - Answers: Total Score: 5 Risk of Readmission: Low Risk Care Management Discharge Reason for Hospitalization: left tibial plateau fracture Discharge Plan: Kate will return home with no additional services at this time. Her will drive her home via private vehicle. She will follow up with Ortho, as recommended. She feels comfortable returning home at this time. CM offered support via phone post discharge, if needed. Patient/Family Education Needs: Review discharge instructions regarding activity levels and medications, discussion of self care needs including ask me three.
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
== END 2020-01-08 13:08 | disposition home or self-care (01) | DRG 494 ==
LOC: PDS 11:34 → MS 11:35
PROVIDERS: Admitting Provider Student in an Organized Health Care Education/Training Program; PCP Nurse Practitioner Family; Visit Provider Student in an Organized Health Care Education/Training Program
PROC: 0QSH04Z Reposition Left Tibia with Internal Fixation Device, Open Approach (ICD-10-PCS; CPT 27535; principal; 2020-01-05 07:30)
DX: S82.142A Displaced bicondylar fracture of left tibia, initial encounter for closed fracture (principal); V86.95XA Unspecified occupant of 3- or 4- wheeled all-terrain vehicle (ATV) injured in nontraffic accident, initial encounter; G89.18 Other acute postprocedural pain
CPT/HCPCS: 27535; 85027; 97161; 97530; J1650; NC; 73560; G0378; J0690; J1100; J1885; J2001; J2250; J2405

== ENCOUNTER 2020-01-20 11:59 | Outpatient (CLI) | payer OTHER, SELFPAY ==
--- NOTE | 2020-01-20 10:45 | DI.RAD_ITS ---
EXAM: XR KNEE LT 2V AP,LAT CLINICAL HISTORY: f/u ORIF L tibial plateau frx. TECHNIQUE: 2D digital imaging was performed. COMPARISON: CR,XR XR KNEE LT 3V AP,LAT,LATESHA from 12/29/2019 XR KNEE LT 1V from 01/05/2020 FINDINGS: BONES: There is again seen a sideplate and screws transfixing the lateral tibial plateau fracture. There has been no change in alignment of the orthopedic hardware or fracture components compared to t he prior examination. The proximal fibular fracture appears stable. No new fractures or dislocation s are present. No bony destructive lesion is seen. JOINTS: The knee is normally aligned. No joint effusion is seen. SOFT TISSUE: Normal. IMPRESSION: Stable proximal left tibial and fibular fractures. DATA REPOSITORY: RADIATION DOSE DELIVERED:
== END 2020-01-20 12:19 ==
PROVIDERS: PCP Nurse Practitioner Family; Referring Provider Nurse Practitioner Family; Visit Provider Student in an Organized Health Care Education/Training Program
DX: S82.832D Other fracture of upper and lower end of left fibula, subsequent encounter for closed fracture with routine healing; S82.142D Displaced bicondylar fracture of left tibia, subsequent encounter for closed fracture with routine healing
CPT/HCPCS: 73560

== ENCOUNTER 2020-02-17 09:34 | Outpatient (CLI) | payer OTHER, SELFPAY ==
--- NOTE | 2020-02-17 09:55 | DI.RAD_ITS ---
EXAM: XR KNEE LT 2V AP,LAT CLINICAL HISTORY: f/u L tib plateau ORIF. TECHNIQUE: 2D digital imaging was performed. COMPARISON: CR XR KNEE LT 2V AP,LAT from 01/20/2020 FINDINGS: Hardware is again noted in the proximal tibia for fracture fixation. There has been no change in carey dware or fracture alignment. The proximal fibular fracture is unchanged. DATA REPOSITORY: RADIATION DOSE DELIVERED:
== END 2020-02-17 09:54 ==
PROVIDERS: PCP Nurse Practitioner Family; Referring Provider Nurse Practitioner Family; Visit Provider Student in an Organized Health Care Education/Training Program
DX: S82.142D Displaced bicondylar fracture of left tibia, subsequent encounter for closed fracture with routine healing (principal)
CPT/HCPCS: 73560

== ENCOUNTER 2020-03-30 11:24 | Outpatient (CLI) | payer OTHER, SELFPAY ==
--- NOTE | 2020-03-30 11:00 | DI.RAD_ITS ---
EXAM: XR KNEE LT 2V AP,LAT INDICATION: fx left tibial plateau. COMPARISON: CR XR KNEE LT 2V AP,LAT from 02/17/2020 TECHNIQUE: 2D digital imaging was performed. FINDINGS: Hardware is again noted in the proximal tibia for tibial plateau fracture. There is been no change i n fracture or hardware alignment. The distal fibular fracture is unchanged. Bones appear osteopenic from disuse. DATA REPOSITORY: RADIATION DOSE DELIVERED:
== END 2020-03-30 11:44 ==
PROVIDERS: PCP Nurse Practitioner Family; Referring Provider Nurse Practitioner Family; Visit Provider Student in an Organized Health Care Education/Training Program
DX: S82.142A Displaced bicondylar fracture of left tibia, initial encounter for closed fracture (principal); Z96.89 Presence of other specified functional implants
CPT/HCPCS: 73560

== ENCOUNTER 2020-06-06 01:33 | Outpatient (CLI) | payer OTHER, SELFPAY ==
[2020-06-06 12:20] LABS: Abs Immature Grans 0.01 10^3/uL (0.0-0.06); Absolute Basophil Count 0.06 10^3/uL (0.0-0.2); Absolute Eosinophil Count 0.14 10^3/uL (0.0-0.7); Absolute Lymphocyte Count 1.96 10^3/uL (1.2-3.4); Absolute Monocyte Count 0.47 10^3/uL (0.1-0.8); Absolute Neutrophil Count 1.77 10^3/uL (1.2-6.7); Basophils % 1.4; Eosinophils % 3.2; HGB 12.8 g/dL (11.2-15.7); Immature Grans % 0.2; Lymphocytes % 44.4; MCH 31.9 pg (27.0-33.0); MCHC 33.7 % (32.0-36.0); MCV 94.8 fL (80-95); MPV 10.4 fL (8.0-11.0); Monocytes % 10.7; Neutrophils % 40.1; Nucleated RBC 0 %; Platelet Count 335 10^3/uL (130-400); RBC 4.01 10^6/uL (3.93-5.22); RDW 11.9 % (11.7-14.6); WBC 4.41 10^3/uL (4.4-10.8)
[2020-06-06 12:34] LABS: ALT 15 U/L (14-59); AST 17 U/L (15-37); Albumin 4.5 g/dL (3.4-5.0); Alkaline Phosphatase 81 U/L (46-116); Anion Gap 6.3 mmol/L (3-11); BUN 7 mg/dL (7-18); Bilirubin, Total 0.6 mg/dL (0.2-1.0); CO2 29.7 mmol/L (21.0-32.0); CREATININE 0.72 mg/dL (0.55-1.02); Chloride 98 mmol/L (98-107); Glucose 95 mg/dL (74-106); Potassium 5.4 mmol/L (3.5-5.1); Sodium 134 mmol/L (136-145); Total Protein 7.8 g/dL (6.4-8.2)
== END 2020-06-06 01:53 ==
PROVIDERS: PCP Nurse Practitioner Family; Visit Provider Chiropractor
DX: R53.83 Other fatigue (principal); R42 Dizziness and giddiness; R11.2 Nausea with vomiting, unspecified
CPT/HCPCS: 36415; 80053; 82533; 85025

== ENCOUNTER 2020-11-01 09:57 | Day surgery (SDC) | payer OTHER, SELFPAY ==
[2020-11-01] VITALS (7 sets, daily range): BP systolic 137–151; BP diastolic 78–98; PULSE 54–79; RESP 10–19; TEMP 36.3–36.8; O2SAT 99–100
[2020-11-01] MEDS: Gabapentin 300 MG CAP PO (10:33)
[2020-11-01] MEDS: Celecoxib 200 MG CAP 400 MG PO (10:33)
[2020-11-01] MEDS: Acetaminophen 500 MG TAB 1000 MG PO (10:34)
--- NOTE | 2020-11-01 10:48 | PDOC.DSDIS_ITS ---
Discharge Plan Disposition Patient Disposition: HOME Condition: Good Discharge Details Reason For Visit: Painful ortho hardware;s/pORIF L tibial plateau fx Attending Provider: Teja Casillas Primary Care Provider: Dejah Naranjo Home Meds and New Rx's Prescriptions: New acetaminophen 500 mg tablet 500 mg PO Q6H PRN (Reason: pain) Qty: 60 RF: 2 ibuprofen 600 mg tablet 600 mg PO TID PRN (Reason: pain) Qty: 60 RF: 2 hydrocodone-acetaminophen 5-325 mg tablet 1 tab PO Q6H PRN (Reason: severe pain) Qty: 6 RF: 0 Continued ascorbic acid (vitamin C) [Vitamin C] 250 mg Tablet 2,000 mg PO DAILY RF: 0 cholecalciferol (vitamin D3) [Vitamin D3] 125 mcg (5,000 unit) Tablet 5,000 unit PO DAILY RF: 0 Hpa [place] 2 cap PO BID RF: 0 Transq 1 tab PO TID RF: 0 epinephrine 0.3 mg/0.3 mL auto-injector 0.3 mg IM ONCE PRN (Reason: anaphylaxis) Qty: 2 RF: 0 Discontinued acetaminophen 500 mg tablet 1,000 mg PO Q8H PRN (Reason: pain) Qty: 90 RF: 3 ibuprofen 600 mg tablet 600 mg PO TID PRNQty: 90 RF: 3 Discharge Instructions Additional Instructions: Knee Hardware Removal Discharge Instructions Activity: You may weight bear as tolerated. You have been given crutches to use for additional support as tolerated. You should keep the leg elevated as much as possible. You may wiggle your toes and move your hip, knee and ankle. Dressings: You should keep the initial dressing on for at least 3 days. After 3 days, you may remove it and get it wet in the shower. You should keep it covered with a light gauze dressing or wrap until follow-up. Medications: - You should take Tylenol and Ibuprofen around the clock for baseline pain. - You have been prescribed a stronger narcotic, Hydrocodone, for breakthrough pain. Follow-up: 2 weeks Referrals: Teja Casillas MD [ [facility] STAFF PHYSICIAN] - Activity:: Weight bearing with crutches as tolerated Remove Dressings/Wound Care:: 72 hours Shower/Bathe:: 72 hours Diet:: As Tolerated Discharge Orders Discharge Orders: Discharge Order (Routine); Ordered 11/01/20 Ordered By: Mariel Contreras DS: Diagnosis Discharge Diagnosis (1) Retained orthopedic hardware: Status: Acute (2) Closed fracture of left tibial plateau: Status: Acute
[2020-11-01] MEDS: Lactated Ringers 1,000 ML 80 ML IV (10:50)
[2020-11-01] MEDS: ceFAZolin 2 GM/50 ML BAG IVPB (12:04)
[2020-11-01] MEDS: Bupivacaine 0.25% Pres-Free 30 ML VIAL (12:28)
[2020-11-01] MEDS: Ketorolac 30 MG/ML VIAL (12:28)
--- NOTE | 2020-11-01 17:25 | ROE_ITS ---
Date of service: 11/01/20 Time of Service: 12:25 Operative Note Operative Note DATE OF PROCEDURE: 11/01/20 PRE-OP DIAGNOSIS: Painful hardware - left tibia POST-OP DIAGNOSIS: same PROCEDURE: Removal of hardware from left tibia SURGEON: Teja Casillas CONTROL TOWER OPERATOR: Louise Hamilton ANESTHESIA TYPE: General LMA/ETT Refer to Anesthesia Record ESTIMATED BLOOD LOSS: 5 PATHOLOGY: none sent TOURNIQUET TIME: 0 COMPLICATIONS: None Patient was transported to: PACU Patient's condition: stable Indications: Evonne is a 55-year-old female who suffered a tibial plateau fracture in March of this past year. She was treated with open reduction internal fixation with plates and screws. She did very well and is now back to all activities. However, she continues to have some discomfort with the plate, especially direct contact. She does not like the way it feels and would like it removed. Therefore, now that she has full function and healing across the fracture, I recommended plate removal. I reviewed the risk of the procedure to include bleeding, infection, pain, stiffness, damage to nerves and vessels, damage to muscles and tendons, refracture, blood clot. Despite these risks, she elected to proceed. Findings: The plate was removed without difficulty. There is no issues with removing the plate. There is no signs of soft bone or concerns for refracture. Procedure Description: Evonne was greeted in the preoperative holding area. Her identity was confirmed the correct side was identified and marked. The consent was reviewed the patient and signed. She was taken to the operating room placed in supine position. All bony problems well-padded. A post was placed high up on the left leg. A small bump was placed on at the left leg as well. The left leg was then prepped ChloraPrep and draped in a standard fashion. A timeout was performed for safe surgery. Cefazolin was administered for prophylactic antibiotics. With the leg in 90 degrees of flexion, the previous incision was incised down through skin only. Electrocautery was utilized to control any bleeding. The fascia of the intracompartment as well as the distal aspect of the IT band was identified. This was then incised sharply only through this layer. Muscle from the anterior compartment is identified as well as the superior portion of the plate. Using a patel elevator then split the muscle fibers in line with our dire ction moving distally exposing the plate underneath. Dissection is mostly carried out with patel elevators but there was significant ingrowth of soft tissue into the plate which was resected with Bovie electrocautery. With the screws now visible I remove the shaft screws first. These 4 screws remove out difficulty. The 4 screws from the head of the plate were then also removed. All screws removed without any significant difficulty. The plate still was quite firmly fixed against the tibia and had to be pried off with a patel elevator underneath the plate due to significant ingrowth of soft tissue into the plate holes. The plate was then removed out difficulty. The wounds thoroughly irrigated. The anterior compartment fascia was closed with a #1 Vicryl. The distal aspect of the IT band was also closed with #1 Vicryl. Deep tissues then closed with 0 Vicryl followed by 2-0 Vicryl. The skin was reapproximated with a 3-0 Monocryl reinforced by skin affix skin glue and a Mepilex silver dressing. At end the case all counts were correct. She tolerated procedure well and was transferred back to the PACU in a stable condition.
== END 2020-11-01 15:08 | disposition home or self-care (01) ==
PROVIDERS: PCP Nurse Practitioner Family; Visit Provider Student in an Organized Health Care Education/Training Program
PROC: (CPT 20680; principal; 2020-11-01 11:30)
DX: T84.84XA Pain due to internal orthopedic prosthetic devices, implants and grafts, initial encounter (principal); E78.5 Hyperlipidemia, unspecified
CPT/HCPCS: 20680; J0690; J1885; J2001; J2405; J2704

== ENCOUNTER 2021-10-29 11:05 | Outpatient (CLI) | payer OTHER, SELFPAY ==
--- NOTE | 2021-10-29 10:45 | DI.RAD_ITS ---
Exam(s) XR KNEE LT 3V AP,LAT,LATESHA EXAM: XR KNEE LT 3V AP,LAT,LATESHA INDICATION: L knee pain. COMPARISON: CR XR KNEE LT 2V AP,LAT from 03/30/2020 TECHNIQUE: 2D digital imaging was performed. FINDINGS: Previously noted hardware in the proximal tibia has been removed. There is mild residual fracture de formities of the lateral tibial plateau and proximal fibula. There is mild step-off at the lateral t ibial plateau. The joint spaces are well maintained. No joint effusion is seen. DATA REPOSITORY: RADIATION DOSE DELIVERED:
== END 2021-10-29 11:06 | disposition home or self-care (01) ==
LOC: DIORS 11:05
PROVIDERS: PCP Nurse Practitioner Family; Referring Provider Nurse Practitioner Family; Visit Provider Physician Assistant
DX: M25.562 Pain in left knee (principal); Z87.81 Personal history of (healed) traumatic fracture
CPT/HCPCS: 73562

== ENCOUNTER → 2023-07-22 01:58 | Outpatient (CLI) | payer OTHER, SELFPAY ==
--- NOTE | 2023-07-22 08:00 | DI.MRI_ITS ---
Exam(s) MR LOWER JOINT RT WO EXAM: MR LOWER JOINT RT WO CLINICAL HISTORY: right knee pain,m25.561. TECHNIQUE: Multiplanar multisequence MRI was performed. COMPARISON: No exams were available for comparison FINDINGS: BONES: There is no fracture or contusion pattern. There is a 1.3 x 1.8 cm lobulated intramedullary ma ss in the distal metaphysis of the right femur. The lesion is predominantly hyperintense on the T2 w eighted images with areas of hypointensity noted. No marrow edema is appreciated. JOINTS: There is a small focus of hyperintense signal seen in the articular cartilage in the medial p atellar facet. The articular cartilage is otherwise unremarkable. No effusion is present. TENDONS: Extensor mechanism: Unremarkable. Medial retinaculum: Unremarkable. Lateral retinaculum: Unremarkable. Popliteus: Unremarkable. MUSCLES: Unremarkable. MENISCI: There is degenerative signal seen in the body and posterior horn of the medial meniscus. No evidence of a tear. The lateral meniscus is unremarkable. SOFT TISSUES: There is a small popliteal cyst. LIGAMENTS: Anterior Cruciate: Unremarkable. Posterior Cruciate: Unremarkable. Medial Collateral:Unremarkable. Lateral Collateral: Unremarkable. OTHER: IMPRESSION: 1. Medial meniscal degeneration. No evidence of a meniscal tear. 2. No evidence of a ligament tear. 3. 1.3 x 1.8 cm lobulated intramedullary mass in the distal right femur. Primary diagnostic concern is add enchondroma or bone infarct. Plain film correlation is recommended. 4. Focal hyperintense signal seen in the medial patellar facet suggesting chondromalacia or chondral injury. The underlying bone is unremarkable. Unexpected findings DATA REPOSITORY:
== END ==
PROVIDERS: PCP Nurse Practitioner Family; Visit Provider Nurse Practitioner Family
DX: M25.561 Pain in right knee (principal)
CPT/HCPCS: 73721

== ENCOUNTER → 2023-07-29 15:14 | Outpatient (CLI) | payer OTHER, SELFPAY ==
--- NOTE | 2023-07-29 15:00 | DI.RAD_ITS ---
Exam(s) XR FEMUR RT EXAM: XR FEMUR RT CLINICAL HISTORY: distal femur mass, bone mass, M89.8X9. TECHNIQUE: 2D digital imaging was performed. COMPARISON: CR,XR XR TIB/FIB LT from 12/29/2019 MR MR LOWER JOINT RT WO from 07/22/2023 FINDINGS: Two views: No evidence of hip nor femur fracture. No degenerative changes evident in the hip. There is a E sclerotic bone lesion in the distal metaphysis of the femur which has appearance of a pr obable enchondroma. I note that the recent MRI does not reveal bone edema surrounding this focal les ion (which would suggest that it is a more aggressive lesion). This lesion measures approximately 1. 4 x 1.8 cm. IMPRESSION: Probable enchondroma in the distal femur. If clinically indicated follow-up whole body nuclear bone scan can be performed to determine radiopharmaceutical uptake at this level and to determine if there are other osseous lesions in the skeleton. DATA REPOSITORY: RADIATION DOSE DELIVERED:
== END ==
PROVIDERS: PCP Nurse Practitioner Family; Visit Provider Physician Assistant
DX: M89.8X5 Other specified disorders of bone, thigh (principal)
CPT/HCPCS: 73552

== ENCOUNTER 2023-12-19 12:06 | Outpatient (REF) | payer OTHER, SELFPAY ==
--- NOTE | 2023-12-19 11:00 | PAPFT_PTH ---
PATIENT: Kate North LOC: [facility] U#:[id number] AGE/SX: 58/F ROOM: RE12/19/[address]: ODIN Reyes : 1965 BED: DIS: 12/19/2023 SPEC #: [id number] RECD: 12/22/23 12:51 STATUS: DEEPA REQ #: [id number] RADHA: 12/19/23 11:[address]: Dejah Naranjo [facility] Cytology RECD BY: Stacie Benítez Tissues: 1 - CX/ENDOCX FOR PAP SMEARS Procedures: PAP THIN PREP/[facility] Screening HPV DNA PROBE Comments: [id number]
== END 2023-12-19 12:07 | disposition home or self-care (01) ==
LOC: LBN 12:06
PROVIDERS: PCP Nurse Practitioner Family; Visit Provider Nurse Practitioner Family
DX: Z00.00 Encounter for general adult medical examination without abnormal findings (principal); Z12.11 Encounter for screening for malignant neoplasm of colon; Z12.31 Encounter for screening mammogram for malignant neoplasm of breast; E78.5 Hyperlipidemia, unspecified
CPT/HCPCS: 88142; 87624

== ENCOUNTER 2024-06-30 00:39 | Outpatient (CLI) | payer OTHER, SELFPAY ==
--- NOTE | 2024-06-30 07:30 | DI.MAMMO_ITS ---
Exam(s) MAMMO SCREENING EXAM: MAMMO SCREENING CLINICAL HISTORY: screening,Z12.39 TECHNIQUE: Mammograms were interpreted according to the usual protocol including computer analysis w [employer] CAD system, tomosynthesis and C-view imaging. COMPARISON: 2018 FINDINGS: The breasts are composed of scattered fibroglandular densities, Breast Density category B. No suspicious masses or suspicious microcalcifications are seen. No skin thickening or abnormal axillary lymph nodes are seen. There has been no significant change from prior exams. IMPRESSION: BI-RADS Category 1, Negative mammogram Yearly screening mammography is recommended. Breast Density - Category B, scattered fibroglandular densities. A negative radiographic report should not delay biopsy if a dominant or clinically suspicious mass is present. Up to ten percent of cancers are not identified on mammography. A negative report may reinforce clinical impression. Adenosis and dense breasts may obscure an underlying neoplasm. False positive reports average 6 to 10%. Patient will receive a letter notifying them of these results.
== END 2024-06-30 00:59 ==
LOC: DI 00:39
PROVIDERS: PCP Nurse Practitioner Family; Visit Provider Nurse Practitioner Family
DX: Z12.31 Encounter for screening mammogram for malignant neoplasm of breast (principal)
CPT/HCPCS: 77063; 77067

== ENCOUNTER 2024-07-05 03:14 | Outpatient (CLI) | payer OTHER, SELFPAY ==
[2024-07-05 12:16] LABS: HCT 36.5 % (36.0-46.0); HGB 12.4 g/dL (11.2-15.7); MCH 31.8 pg (27.0-33.0); MCV 94 fL (80-95); MPV 10.2 fL (8.0-11.0); Platelet Count 321 10^3/uL (130-400); RDW 12.3 % (11.7-14.6); RDW-SD 42.5 fL; WBC 5.83 10^3/uL (4.4-10.8)
[2024-07-05 12:39] LABS: Anion Gap 8.4 mmol/L (3-11); BUN 7 mg/dL (7-18); CO2 29.6 mmol/L (21.0-32.0); CREATININE 0.6 mg/dL (0.55-1.02); Calcium 9.9 mg/dL (8.5-10.1); Chloride 96 mmol/L (98-107); Cholesterol 214 mg/dL (<200); Estimated GFR 103.98 (mL/min/1.73m2); Glucose 93 mg/dL (74-106); HDL Cholesterol 115 mg/dL (40-60); Potassium 3.9 mmol/L (3.5-5.1); Sodium 134 mmol/L (136-145); TSH (W/Ref FT4) 1.53 uIU/mL (0.36-3.74); Triglyceride <25 mg/dL (<150)
[2024-07-05 12:49] LABS: Hemoglobin A1C 5.3 % (<5.7)
[2024-07-05 12:50] LABS: LDL CHOLESTEROL 93 mg/dL (<100)
[2024-07-05 19:42] LABS: Hepatitis C Ab w Rflx HCV PCR Negative (Negative)
[2024-07-07 08:32] LABS: Lab Add On Test DONE
[2024-07-07 18:46] LABS: HBs Antibody, Quant <3.1 mIU/mL (See Note); Hep B Surface Ab Negative (See Note); Hepatitis B Core Antibody Negative (Negative); Hepatitis B Surface Antigen Negative (Negative)
[2024-07-07 19:16] LABS: HIV-1/2 Ag & Ab Screen Negative (Negative)
== END 2024-07-05 03:15 | disposition home or self-care (01) ==
LOC: LOS 03:14
PROVIDERS: PCP Nurse Practitioner Family; Visit Provider Nurse Practitioner Family
DX: Z00.00 Encounter for general adult medical examination without abnormal findings (principal); Z11.59 Encounter for screening for other viral diseases
CPT/HCPCS: 36415; 80048; 80061; 83721; 85027; 86704; 86706; 86803; 87340; 87389; 83036; 84443